=== PATIENT | female | born 1985 | race Caucasian/White ===

== ENCOUNTER 2017-08-21 09:57 | Emergency (ER) | payer MEDICAID ==
[~2017-08-21] VITALS: Ht 154.9 cm; Wt 79.4 kg
--- NOTE | 2017-08-21 10:35 | Urgent Treatment Center Report ---
History of Present Issue Date/Time Seen by Provider 08/21/17 1014 Visit Reason Pt arrived:Walked Presenting Problem:PT C/O DENTAL PAIN X4 DAYS Location if Accident: Onset of symptoms date/time:/ or onset unknown for:MEDICAL HX UNKNOWN Have you (or family members/close friends) recently traveled outside the [place]? N If Yes, where/when: Have you had exposure to infectious disease within the past month? TB? Other? Specify: Patient state that she had several teeth cut out last week State that for last four days she is having a throbbing like pain in her back of her gums where two of the teeth where removed States that she is also having pain in the front of her mouth on top gum where third tooth was removed. State that she called her dentist and they cannot get her in until Thu ALLERGIES Coded Allergies: ibuprofen (Mild, 08/21/17) codeine (HIVES/UPSET STOMACH 09/02/16) ondansetron (From ZOFRAN ( HYDROCHLORIDE)) (VOMITING 09/02/16) prednisone (FACIAL SWELLING 10/06/16) Home Medications Reported Medications Omeprazole (Prilosec 40mg Cap) 40 MG PO DAILY Gabapentin (Gabapentin 800MG) 600 MG PO QID Estradiol (Estrace 2MG. Tablet) 2 MG PO DAILY #30 Clonazepam (Clonazepam 0.5MG) 0.5 MG PO BID #60 Escitalopram Oxalate 20 MG PO DAILY #30 Quetiapine Fumarate 25 MG PO NIGHTLY #30 Doxycycline Hyclate 100 MG PO DAILY #30 PROMETHAZINE HCL (Phenergan 25MG Tab (Geq)) 25 MG PO Q6HP PRN N/V #30 Albuterol (Albuterol-Hfa Inhaler) 2 PUFFS IH PRN PRN asthma History Medical History General CAD? No Angina: No MD: No Hypertension? No Hyperlipidemia? Yes CHF? No DVT? No PE? No COPD? No Asthma? Yes Anemia? No GERD? Yes Gastric ulcers? No GI Bleed? No Hernia? No Thyroid Problems? Yes Hypothyroidism? No CVA? No Seizures? No Diabetes? No Renal Insuffiency? No UTI? No Stones? No BPH? No GB Disease: Yes Nephritic Syndrome? No Asplenia? No Hepatitis? Yes Sickle Cell Disease? No Arthritis? Yes Migraines? No Cataracts? No Glaucoma? No MRSA? Yes HIV? No TB? No Anxiety? Yes Depression? No Cancer? No More? Yes Additional hx: HEPATITIS C Immunization HX DT/Tetanus 1-4 Years Ago Flu Refused Pneumonia Never Had Surgical Hx Previous Surgery?Y EXPLORATORY LAP X2 X'S 3 LAP CHOLECYSTECTOMY ENDOSCOPY CYST REMOVED FROM L CHEEK HYSTERECTOMY BLADDER REPAIR Family History Family HX Diabetes Yes CAD Yes Hypertension Yes Hyperlipidemia Yes Cancer Yes TB No Social History Smoking Hx Smoker: Current Every Day Smoker Tobacco: Yes Type Cigarettes Packs/day 1 1/2 - 2 Packs Alcohol Alcohol: No Review of Systems All Other Systems Reviewed and Negative ENT mouth pain, missing teeth, other. Physical Exam Vital Signs Vital Signs Date Time Temp Pulse Resp B/P Pulse O2 O2 Flow FiO2 Ox Delivery Rate 08/21 1007 98.0 89 22 138/90 98 General Appearance normal appearance, WD/WN, no apparent distress Ear, Nose, Throat dental caries, Dental pain where she had three teeth cut out at the dentist last week, gums appear healing, pink, no redness minimal swelling Respiratory Status Yes: trachea midline, chest symmetrical. No: respiratory distress. Lung Sounds bilateral: normal breath sounds, lungs clear. Cardiovascular regular rate/rhythm Neurologic alert, normal exam, oriented x 3 Medical Decision Making LABS/Meds/Orders Pt receiving controlled substance in ED? No Results/Orders Current Medication Orders Sig/Grace Start time Last Medication Dose Route Stop Time Status Admin Lidocaine HCl 15 ML ONCE ONE 08/21 1030 DC TP 08/21 1031 Lidocaine HCl 0 .STK-MED ONE 08/21 1029 DC .ROUTE Orders Procedure Date/time Status [facility] DENTAL BALL 08/21 1021 Active Progress [facility] Progress Notes Comment Patient wanted Percocet refilled, Patient advised that I was unable to write narcotics advised her that we could transfer her to ER if she needed something stronger than what was being recommended State that she would try the medicaiton and if it didn't help with pain she would follow up with Dentist Departure Departure Time of Disposition 1021 Disposition DC Home or Self Care(routine) Clinical Impression Primary Impression: Pain, dental Condition STABLE Referrals Dentist Patient Instructions DI for Dental Pain Additional Instructions Follow up with dentist as advised in the clinic today Use dental balls as instructed Take medication as prescribed If medication does not help with pain follow up with dentist for further treatment ANy signs of infection such as swelling drainage redness go straight to ER Discharge Counseling Counseled pt/family regarding diagnosis, medications/RX, home care, follow up needs Prescriptions Current Visit Scripts ACETAMINOPHEN/DIPHENHYDRAMINE (Percogesic 325-12.5 MG Tablet) 1 TAB PO Q4HP PRN pain #20 TAB at 4903
[2017-08-21 10:39] VITALS: BP 138/90
--- OUTSIDE RECORDS SUMMARY | 2017-08-28 02:58 | External Medical Summary Rpt ---
Author Author [facility] Organization [facility] Address Unknown Phone Unavailable Care Team Providers Care Powder Blender And Pourer Name Role Phone NICOL, (REF) PCP [phone] Encounter [facility] Date(s): 09/18/16 - 09/28/16 [facility] [address] [place] [address]- Discharge Disposition: OP Self Care or Home Attending Physician: GERMAINE CHAVEZ MD-URO Admitting Physician: GERMAINE CHAVEZ MD-URO Referring Physician: GERMAINE CHAVEZ MD-URO Reason for Visit ILLNESS, UNSPECIFIED Vital Signs Most recent 1 2 3 to oldest [Reference Range]: Temperature Oral (09/26/16 Oral (09/26/16 Oral (09/25/16 Source 7:53 AM) 4:23 AM) 7:25 PM) Temperature Fahrenheit Fahrenheit Fahrenheit Mode (09/26/16 7:53 (09/26/16 4:23 (09/25/16 7:25 AM) AM) PM) Temperature, 98.6 Deg F 98.5 Deg F 98.8 Deg F Fahrenheit (09/28/16 10:45 (09/27/16 11:30 (09/27/16 7:30 [96.8-99.7 AM) PM) PM) Deg F] Clinical 37 Deg C 36.9 Deg C 37.1 Deg C Temperature, (09/28/16 10:45 (09/27/16 11:30 (09/27/16 7:30 C AM) PM) PM) Pulse Method Pulse Oximetry (09/19/16 10:50 AM) Peripheral 79 bpm (09/19/16 Pulse Rate 10:50 AM) [60-100 bpm] Heart Rate 55 bpm 72 bpm (09/27/16 67 bpm (09/27/16 Monitored *LOW*(09/28/16 11:30 PM) 7:30 PM) [60-100 bpm] 10:45 AM) Respiratory 16 Breaths/Min 17 Breaths/Min 16 Breaths/Min Rate [14-20 (09/28/16 10:45 (09/27/16 11:30 (09/27/16 7:30 Breaths/Min] AM) PM) PM) Blood Arm, left upper Arm, left upper Pressure (09/25/16 8:00 (09/19/16 10:50 Location AM) AM) Blood Non-Invasive BP Non-Invasive BP Pressure Device (09/25/16 Device (09/19/16 Source 8:00 AM) 10:50 AM) Blood Sitting (09/19/16 Pressure 10:50 AM) Position Blood 143/96 mmHg 125/67 mmHg 128/86 mmHg Pressure *HI*(09/28/16 (09/27/16 11:30 (09/27/16 7:30 [90-140/60-9 10:45 AM) PM) PM) 0 mmHg] Mean 111 (09/28/16 99 (09/27/16 7:30 98 (09/27/16 4:30 Arterial 10:45 AM) PM) PM) Pressure (MAP)-BMDI Oxygen 93 % 99 % (09/27/16 96 % (09/26/16 Saturation *LOW*(09/27/16 9:00 AM) 11:00 AM) [94-100 %] 9:00 PM) Oxygen Room air Room air Room air Therapy Mode (09/28/16 8:00 (09/27/16 9:00 (09/27/16 9:00 AM) PM) AM) Oxygen Flow 6 Liter/Min Rate (09/25/16 1:40 PM) Problem List Condition Effective Status Health Informant Dates Status Allergic Active rhinitis(Con firmed) Anemia(Confi Active rmed) anxiety(Conf Active irmed) Arthritis(Co Active nfirmed) Asthma (dx Active at age 12)(Confirme d) Back Active pain(Confirm ed) dizzy spells Active (occasional) (Confirmed) Endometriosi Active s(Confirmed) Fibroids (hx Active of)(Confirme d) GERD - Active Gastro-esoph ageal reflux disease(Conf irmed) herniated Active lumbar disc(Confirm ed) Hiatal Active hernia(Confi rmed) Incontinence Active (due to hole in bladder from hysterectomy )(Confirmed) legally Active blind(Confir med) Migraine(Con Active firmed) motion Active sickness (extreme)(Co nfirmed) MRSA; active Active left upper inner forearm(Conf irmed) nausea and Active vomiting; current(Conf irmed) PCO - Active Polycystic ovaries (hx of)(Confirme d) Peripheral Active neuropathy(C onfirmed) Restless Active legs syndrome(Con firmed) sciatica(Con Active firmed) Sinusitis(Co Active nfirmed) Sleep apnea Active risk(Confirm ed) Urinary Active tract infection (chronic since 02/2016)(Conf irmed) Allergies, Adverse Reactions, Alerts Substance Reaction Severity Status codeine Itching Active Hives predniSONE Facial swelling Active Zofran Nausea Active Vomiting Medications acetaminophen-oxyCODONE (Percocet 5/325 oral tablet)2 Tab, Oral, Every 4 Hours, As Needed, Abdominal Pain, Refills: 0Patient Instructions: New medication. Prescription provided.Ordering provider: Gama Peterson MD albuterol 2 puffs, Inhalation, Every Day, As Needed, as needed for shortness of breath or wheezing, Refills: 0 [id number] mcg, Inhalation, Every Day, As Needed, Shortness of Breath, Refills: 0 clonazePAM (KlonoPIN 0.5 mg oral tablet) 1 Tab, Oral, Two Times A Day, Refills: 0 docusate (Colace 100 mg oral capsule)1 Cap, Oral, Every Day, Refills: 0Patient Instructions: New medication. Prescription provided.Ordering provider: GERMAINE CHAVEZ MD-URO doxycycline (doxycycline hyclate 100 mg oral capsule)1 Cap, Oral, Two Times A Day, Refills: 0Patient Instructions: New medication. Prescription provided.Ordering provider: GERMAINE CHAVEZ MD-URO escitalopram (escitalopram 20 mg oral tablet) 1 Tab, Oral, Every Day, Refills: 0 estradiol (estradiol 2 mg oral tablet) 1 Tab, Oral, Every Day, Refills: 0 gabapentin (gabapentin 600 mg oral tablet) 1 Tab, Oral, Four Times A Day, Refills: 0 omeprazole (PriLOSEC OTC 20 mg oral delayed release tablet)1 Tab, Oral, Every Day, Refills: 0 traMADol (traMADol 50 mg oral tablet)1 Tab, Oral, Every 6 Hours, As Needed, for pain, Refills: 0 Results GENERAL CHEMISTRY Most recent 1 2 to oldest [Reference Range]: Sodium Level 147 mmol/L [136-146 *HI* mmol/L] (09/26/16 6:02 AM) Potassium 3.9 mmol/L Level (09/26/16 6:02 AM) [3.5-5.1 mmol/L] Chloride 113 mmol/L Level *HI* [102-112 (09/26/16 6:02 AM) mmol/L] Carbon 24 mmol/L Dioxide (09/26/16 6:02 AM) Level [21-32 mmol/L] Anion Gap 14 [9-20] (09/26/16 6:02 AM) Glucose 92 mg/dL Level (09/26/16 6:02 AM) [74-106 mg/dL] Blood Urea 11 mg/dL Nitrogen (09/26/16 6:02 AM) [7-22 mg/dL] Creatinine 0.60 mg/dL Level (09/26/16 6:02 AM) [0.55-1.02 mg/dL] eGFR 140 mL/min/1.73m2 [>=60 (09/26/16 6:02 AM) mL/min/1.73m 2] eGFR 116 mL/min/1.73m2 NonAfrican (09/26/16 6:02 AM) [>=60 mL/min/1.73m 2] Bun/Creatini 18.3 ne (09/26/16 6:02 AM) [8.0-20.0] Calcium 7.5 mg/dL Level *LOW* [8.5-10.1 (09/26/16 6:02 AM) mg/dL] HEMATOLOGY Most recent 1 2 to oldest [Reference Range]: WBC 10.4 K/uL 6.0 K/uL [4.0-10.0 *HI* (09/19/16 12:13 PM) K/uL] (09/26/16 6:02 AM) RBC 4.04 Million/uL 4.82 Million/uL [3.93-5.22 (09/26/16 6:02 AM) (09/19/16 12:13 PM) Million/uL] Hgb 11.6 g/dL 13.8 g/dL [11.2-15.7 (09/26/16 6:02 AM) (09/19/16 12:13 PM) g/dL] Hct 35.7 % 43.7 % [34.1-44.9 (09/26/16 6:02 AM) (09/19/16 12:13 PM) %] MCV 88.4 fL 90.7 fL [79.0-94.8 (09/26/16 6:02 AM) (09/19/16 12:13 PM) fL] MCH 28.7 pg 28.6 pg [25.6-32.2 (09/26/16 6:02 AM) (09/19/16 12:13 PM) pg] MCHC 32.5 Gram/dL 31.6 Gram/dL [32.2-36.5 (09/26/16 6:02 AM) *LOW* Gram/dL] (09/19/16 12:13 PM) Platelet 142 K/uL 199 K/uL Count *LOW* (09/19/16 12:13 PM) [163-369 (09/26/16 6:02 AM) K/uL] MPV 12.1 fL 11.3 fL [9.4-12.4 (09/26/16 6:02 AM) (09/19/16 12:13 PM) fL] RDW 13.4 % 13.9 % [11.6-14.4 (09/26/16 6:02 AM) (09/19/16 12:13 PM) %] Neut % 41.5 % [34.0-71.0 (09/19/16 12:13 PM) %] Neut # 2.48 K/uL [1.56-6.13 (09/19/16 12:13 PM) K/uL] Lymph % 50.0 % [19.3-53.1 (09/19/16 12:13 PM) %] Lymph # 2.98 x10(3)/uL [1.00-3.90 (09/19/16 12:13 PM) x10(3)/uL] [place] % 5.4 % [3.0-9.0 %] (09/19/16 12:13 PM) [place] # 0.32 K/uL [0.16-1.00 (09/19/16 12:13 PM) K/uL] Eos % 2.2 % [0.0-7.0 %] (09/19/16 12:13 PM) Eos # 0.13 x10(3)/uL [0.00-0.80 (09/19/16 12:13 PM) x10(3)/uL] Baso % 0.7 % [0.0-1.5 %] (09/19/16 12:13 PM) Baso # 0.04 x10(3)/uL [0.00-0.20 (09/19/16 12:13 PM) x10(3)/uL] Slide Review No No (09/26/16 6:02 AM) (09/19/16 12:13 PM) IG# 0.01 x10(3)/uL [0.00-0.05 (09/19/16 12:13 PM) x10(3)/uL] IG% 0.20 % [0.00-0.60 (09/19/16 12:13 PM) %] Immunizations No data available for this section Procedures Procedure Date Related Body Site Diagnosis cystoscopy 08/16 07/01 hysterectomy (hole punctured 02/28 in bladder) x3 (2003, 2007, 2011) cyst removed right side of face D&C (x2) dx lap (x3-4 for endometriosis) lap isra oral surgery under anesthetic (6 teeth cut out) wisdom tooth x1 Social History Social History Response Type Smoking Status Current every day smoker; Smoking Frequency Within Last 30 Days Five or more cigarettes per day; Tobacco Use Within Last Twelve Months Cigarettes; Years of Tobacco Use 15; Packs/Tins Daily 2 Assessment and Plan Extracted from: Title: Progress/SOAP Author: Nicholas, Date: 09/27/16 Note MD Gama Assessment/Plan 31 yo female s/p robotic vesicovaginal fistula repair 09/25/2016 - continue regular diet - dvt ppx - continue pain control - possible dc today if pt can tolerate diet without phenergan - continue pain control - possible dc today if pt can tolerate diet without phenergan Adde I HAVE SEEN AND EVALUATED THIS PATIENT AND AGREE WITH FINDINGS ndum AND PLANS DOCUMENTED BY THE RESIDENT IN THE ABOVE NOTE. by TOMY LABOY MD on [facility] 2015 13:2 7:51 EST Extracted from: Title: Progress/SOAP Author: Nicholas, Date: 09/26/16 Note MD Gama Assessment/Plan Illness, [id number], Illness, [id number] 31 yo female s/p robotic vesicovaginal fistula repair 09/25/2016 - continue clears - ambulate TID - dvt ppx - continue sotelo - pain control Adde c/o surgical pain and nausea. agree w above, home when stable ndum and f/u w me in [place] 10/07/16 for catheter removal. by LULY IVORY MD-U RO on [facility] 2015 11:0 0:16 EST Hospital Discharge Instructions Patient EducationFoley Catheter Care, Adult
--- OUTSIDE RECORDS SUMMARY | 2017-08-28 02:58 | External Medical Summary Rpt ---
Author Author [facility] Organization [facility] Address Unknown Phone Unavailable Care Team Providers Care [employer] Maintenance Worker Name Role Phone NICOL, (REF) PCP [phone] Encounter 09/11/16 - 07/10/[address] [facility] [place] [address]- Discharge Disposition: Registered in Error Admitting Physician: GERMAINE CHAVEZ MD-URO Referring Physician: GERMAINE CHAVEZ MD-URO Reason for Visit N 82.0 Vital Signs No data available for this section Problem List Condition Effective Status Health Informant [...] 4 Hours, As Needed, Abdominal Pain, Refills: 0Ordering provider: Gama Peterson MD albuterol 2 puffs, Inhalation, Every Day, As Needed, as needed for shortness of breath or wheezing, Refills: 0 [id number] mcg, Inhalation, Every Day, As Needed, Shortness of Breath, Refills: 0 clonazePAM (KlonoPIN 0.5 mg oral tablet) 1 Tab, Oral, Two Times A Day, Refills: 0 docusate (Colace 100 mg oral capsule) 1 Cap, Oral, Every Day, Refills: 0 Ordering provider: GERMAINE CHAVEZ MD-URO escitalopram (escitalopram 20 [...] As Needed, for pain, Refills: 0 Results No data available for this section Immunizations No data available for this section Procedures No data available for this section Social History Social History Response Type Smoking Status Current every day smoker; Smoking Frequency Within Last 30 Days Five or more cigarettes per day; Tobacco Use Within Last Twelve Months Cigarettes; Years of Tobacco Use 15; Packs/Tins Daily 2 Assessment and Plan No data available for this section Hospital Discharge Instructions No data available for this section
--- OUTSIDE RECORDS SUMMARY | 2017-08-28 02:58 | External Medical Summary Rpt ---
Author Author [facility] Organization [facility] Address Unknown Phone Unavailable Care Team Providers Care Plow Mechanic Name Role Phone NICOL, (REF) PCP [phone] Encounter [facility] Date(s): 09/18/16 - 09/28/[address] [facility] [address] [place] [address]- [phone] Discharge Disposition: OP Self Care or Home [...] shortness of breath or wheezing, Refills: 0 [id number] mcg, Inhalation, Every Day, As Needed, Shortness [...] 2.98 x10(3)/uL [1.00-3.90 (09/19/16 12:13 PM) x10(3)/uL] [place] % 5.4 % [3.0-9.0 %] (09/19/16 12:13 PM) [place] # 0.32 K/uL [0.16-1.00 (09/19/16 12:13 PM) [...] ABOVE NOTE. by TOMY LABOY MD on [facility] 2015 13:2 7:51 EST Extracted from: Title: Progress/SOAP Author: Nicholas, Date: 09/26/16 Note MD Gama Assessment/Plan Illness, [id number], Illness, [id number] 31 yo female s/p robotic vesicovaginal fistula repair 09/25/2016 - continue clears - ambulate TID - dvt ppx - continue sotelo - pain control Adde c/o surgical pain and nausea. agree w above, home when stable ndum and f/u w me in [place] 10/07/16 for catheter removal. by LULY IVORY MD-U RO on [facility] 2015 11:0 0:16 EST Hospital Discharge Instructions Patient EducationFoley Catheter Care, Adult
--- OUTSIDE RECORDS SUMMARY | 2017-08-28 02:58 | External Medical Summary Rpt ---
Author Author [facility] Organization [facility] Address Unknown Phone Unavailable Care Team Providers Care Poultry Pathologist Name Role Phone NICOL, (REF) PCP [phone] Encounter 09/11/16 - 07/10/[address] [facility] [place] [address]- Discharge Disposition: Registered in Error Admitting Physician: [...] shortness of breath or wheezing, Refills: 0 [id number] mcg, Inhalation, Every Day, As Needed, Shortness [...]
--- OUTSIDE RECORDS SUMMARY | 2017-08-28 03:26 | External Medical Summary Rpt | CCD ---
Demographics Preferred Language Sinhala Marital Status Unknown Yazidi Affiliation Unknown Race Unknown Ethnic Group Unknown Author Author , BARON DRAPER Address Unknown Phone Immunization No patient found.
--- OUTSIDE RECORDS SUMMARY | 2017-08-28 03:26 | External Medical Summary Rpt | CCD ---
Demographics Preferred Language Uzbek Marital Status Unknown Mosque Affiliation Unknown Race Unknown Ethnic Group Unknown Author Author , BARON DRAPER Address Unknown Phone Immunization No patient found.
--- OUTSIDE RECORDS SUMMARY | 2017-08-28 03:27 | External Medical Summary Rpt ---
Author Author BARON Kaplan, [employer] Address Unknown Phone Unavailable Results Bacteria identified in Urine by Culture Observa Value Referen Units Interpr Notes Date tion ce etation Range Collect CLEAN No No No Dec 01 ion CATCH informa informa informa 2017 method tion in tion in tion in 8:36 AM [Type] source source source of data data data Specime n STATUS PRELIMI No No No No Dec 01 NARY informa informa informa informa 2017 tion in tion in tion in tion in 8:36 AM source source source source data data data data RESULT: NO No No No No Dec 01 GROWTH informa informa informa informa 2016 DAY 1 tion in tion in tion in tion in 8:36 AM source source source source data data data data RESULTE DB No No No No Dec 01 D BY informa informa informa informa 2017 tion in tion in tion in tion in 8:36 AM source source source source data data data data SEND Y No No No No Dec 01 PHARM/I informa informa informa informa 2017 C tion in tion in tion in tion in 8:36 AM source source source source data data data data SEND TO Y No No No Dec 01 ER informa informa informa 2017 tion in tion in tion in 8:36 AM source source source data data data STATUS FINAL No No No No Dec 01 informa informa informa informa 2017 tion in tion in tion in tion in 8:36 AM source source source source data data data data RESULT: 20,000 No No No No Dec 01 CFU/ML informa informa informa informa 2017 UROGENI tion in tion in tion in tion in 8:36 AM CHAGO source source source source LORI data data data data RESULTE MDA No No No No Dec 01 D BY informa informa informa informa 2017 tion in tion in tion in tion in 8:36 AM source source source source data data data data SEND Y No No No No Dec 01 PHARM/I informa informa informa informa 2017 C tion in tion in tion in tion in 8:36 AM source source source source data data data data SEND TO Y No No No Dec 01 ER informa informa informa [id number]. 2017 tion in tion in tion in DRB.to 8:36 AM source source source PHARMAC data data data Y D via [facility] [place]. [id number].MD KurtzCOMPL ETE Drug abuse CCC Observa Value Referen Units Interpr Notes Date tion ce etation Range DIMENSION RAPID URINE DRUG SCREEN DETECTI No No No No Nov 29 ON informa informa informa informa 2017 LIMIT tion in tion in tion in tion in 6:44 PM source source source source data data data data Drug NEG. No 1000_ng No No Nov 29 abuse informa /mL informa informa 2017 CCC tion in tion in tion in 6:44 PM source source source data data data Benzodi NEG. No 200_ng/ No No Nov 29 azepine informa mL informa informa 2016 s tion in tion in tion in 6:44 PM [Mass/v source source source olume] data data data in Urine Benzodi POS. No 200_ng/ No No Nov 29 azepine informa mL informa informa 2016 s tion in tion in tion in 6:44 PM [Mass/v source source source olume] data data data in Urine Cocaine NEG. No 300_ng/ No No Nov 29 informa mL informa informa 2016 [Mass/v tion in tion in tion in 6:44 PM olume] source source source in data data data Urine Methado NEG. No 300_ng/ No No Nov 29 ne informa mL informa informa 2016 [Mass/v tion in tion in tion in 6:44 PM olume] source source source in data data data Urine Platele NEG. No 2000_ng No No Nov 29 ts informa /mL informa informa 2016 [#/volu tion in tion in tion in 6:44 PM me] in source source source Blood data data data by Automat ed count Phencyc NEG. No 25_ng/m No No Nov 29 lidine informa L informa informa 2016 [Mass/v tion in tion in tion in 6:44 PM olume] source source source in data data data Urine Cannabi NEG. No 50_ng/m No No Nov 29 noids informa L informa informa 2016 [Mass/v tion in tion in tion in 6:44 PM olume] source source source in data data data Urine Oxycodo NEG. No 100_ng/ No *POSITI Nov 29 ne informa mL informa VE 2016 [Mass/m tion in tion in RESULTS 6:44 PM ass] in source source ARE Hair data data CONSIDE RED PRESUMP TIVEP OSITIVE RESULTS SHALL BE SENT TO [facility] FOR CONFIRM ATION UPON REQUEST T HIS TEST PERORME D FOR MEDICAL DIAGNOS TIC USE ONLY TEST PERFORM ED BY: [facility] [address] [address]([phone])W[place] DICAL DIRECTO R: Frankie Fajardo MD Urinalysis dipstick W Reflex Microscopic panel in Urine Observa Value Referen Units Interpr Notes Date tion ce etation Range Color LT. NL: No No No Nov 29 of WAYNE Negativ informa informa informa 2016 Urine e tion in tion in tion in 6:42 PM source source source data data data Appeara CLEAR NL: No No No Nov 29 nce of Negativ informa informa informa 2016 Urine e tion in tion in tion in 6:42 PM source source source data data data Glucose NEG NL: No No No Nov 29 Negativ informa informa informa 2016 [Mass/v e tion in tion in tion in 6:42 PM olume] source source source in data data data Urine by Test strip Bilirub NEG NL: No No No Nov 29 in Negativ informa informa informa 2016 [Presen e tion in tion in tion in 6:42 PM ce] in source source source Urine data data data by Test strip Ketones NEG NL: No No No Nov 29 Negativ informa informa informa 2016 [Presen e tion in tion in tion in 6:42 PM ce] in source source source Serum data data data or Plasma Specifi 1.010 NL: No No No Nov 29 c 1.00 >= informa informa informa 2017 gravity 1.030 tion in tion in tion in 6:42 PM of source source source Urine data data data Hemoglo 1+ NL: No Abnorma No Nov 29 bin Negativ informa l informa 2017 [Presen e tion in tion in 6:42 PM ce] in source source Urine data data by Test strip pH of 6.0 NL: No No No Nov 29 Urine informa informa informa 2017 by Test tion in tion in tion in 6:42 PM strip source source source data data data Protein NEG NL: No No No Nov 29 Negativ informa informa informa 2017 [Presen e tion in tion in tion in 6:42 PM ce] in source source source Urine data data data by Test strip Urobili 0.2 NL: 0.2 No No No Nov 29 nogen - 1.0 informa informa informa 2017 [Mass/v tion in tion in tion in 6:42 PM olume] source source source in data data data Urine by Test strip Nitrite NEG NL: No No No Nov 29 Negativ informa informa informa 2017 [Presen e tion in tion in tion in 6:42 PM ce] in source source source Urine data data data by Test strip Leukocy NEG NL: No No { Nov 29 luis Negativ informa informa MICROSC 2016 [#/volu e tion in tion in OPIC 6:42 PM me] in source source Blood data data See by Below Automat ed count Leukocy 0 - 3 NL: No No No Nov 29 luis NEGATIV informa informa informa 2016 [#/volu E tion in tion in tion in 6:42 PM me] in source source source Blood data data data by Automat ed count Erythro 0 - 3 NL: No Abnorma No Nov 29 cytes NEGATIV informa l informa 2016 [#/volu E tion in tion in 6:42 PM me] in source source Blood data data by Automat ed count Epithel 5 - 10 NL: No Abnorma No Nov 29 ial NEGATIV informa l informa 2017 cells E tion in tion in 6:42 PM [#/area source source ] in data data Urine sedimen t by Microsc opy high power field Bacteri TRACE NL: No Abnorma No Nov 29 a NEGATIV informa l informa 2016 [#/area E tion in tion in 6:42 PM ] in source source Urine data data sedimen t by Microsc opy high power field Additio C CATCH No No No No Nov 29 nal informa informa informa informa 2017 comment tion in tion in tion in tion in 6:42 PM s RFC source source source source data data data data CULTURE C&S No No Abnorma No Nov 29 SETUP ORDER informa informa l informa 2017 tion in tion in tion in 6:42 PM source source source data data data Urinalysis dipstick W Reflex Microscopic panel in Urine Observa Value Referen Units Interpr Notes Date tion ce etation Range Color LT. NL: No No No Nov 29 of YELL Negativ informa informa informa 2017 Urine e tion in tion in tion in 6:42 PM source source source data data data Appeara CLEAR NL: No No No Nov 29 nce of Negativ informa informa informa 2017 Urine e tion in tion in tion in 6:42 PM source source source data data data Glucose NEG NL: No No No Nov 29 Negativ informa informa informa 2016 [Mass/v e tion in tion in tion in 6:42 PM olume] source source source in data data data Urine by Test strip Bilirub NEG NL: No No No Nov 29 in Negativ informa informa informa 2016 [Presen e tion in tion in tion in 6:42 PM ce] in source source source Urine data data data by Test strip Ketones NEG NL: No No No Nov 29 Negativ informa informa informa 2016 [Presen e tion in tion in tion in 6:42 PM ce] in source source source Serum data data data or Plasma Specifi 1.010 NL: No No No Nov 29 c 1.00 >= informa informa informa 2017 gravity 1.030 tion in tion in tion in 6:42 PM of source source source Urine data data data Hemoglo 1+ NL: No Abnorma No Nov 29 bin Negativ informa l informa 2016 [Presen e tion in tion in 6:42 PM ce] in source source Urine data data by Test strip pH of 6.0 NL: No No No Nov 29 Urine informa informa informa 2017 by Test tion in tion in tion in 6:42 PM strip source source source data data data Protein NEG NL: No No No Nov 29 Negativ informa informa informa 2016 [Presen e tion in tion in tion in 6:42 PM ce] in source source source Urine data data data by Test strip Urobili 0.2 NL: 0.2 No No No Nov 29 nogen - 1.0 informa informa informa 2016 [Mass/v tion in tion in tion in 6:42 PM olume] source source source in data data data Urine by Test strip Nitrite NEG NL: No No No Nov 29 Negativ informa informa informa 2016 [Presen e tion in tion in tion in 6:42 PM ce] in source source source Urine data data data by Test strip Leukocy NEG NL: No No { Nov 29 luis Negativ informa informa MICROSC 2016 [#/volu e tion in tion in OPIC 6:42 PM me] in source source Blood data data See by Below Automat ed count Leukocy 0 - 3 NL: No No No Nov 29 luis NEGATIV informa informa informa 2016 [#/volu E tion in tion in tion in 6:42 PM me] in source source source Blood data data data by Automat ed count Erythro 0 - 3 NL: No Abnorma No Nov 29 cytes NEGATIV informa l informa 2016 [#/volu E tion in tion in 6:42 PM me] in source source Blood data data by Automat ed count Epithel 5 - 10 NL: No Abnorma No Nov 29 ial NEGATIV informa l informa 2016 cells E tion in tion in 6:42 PM [#/area source source ] in data data Urine sedimen t by Microsc opy high power field Bacteri TRACE NL: No Abnorma No Nov 29 a NEGATIV informa l informa 2016 [#/area E tion in tion in 6:42 PM ] in source source Urine data data sedimen t by Microsc opy high power field Additio C CATCH No No No No Nov 29 nal informa informa informa informa 2016 comment tion in tion in tion in tion in 6:42 PM s RFC source source source source data data data data CULTURE C&S No No Abnorma No Nov 29 SETUP ORDER informa informa l informa 2016 tion in tion in tion in 6:42 PM source source source data data data Lactate [Mass/volume] in Serum or Plasma Observa Value Referen Units Interpr Notes Date tion ce etation Range Lactate 0.77 0.40 - mmol/L No VINESSA Nov 29 2.00 informa H 1711 2016 [Mass/v tion in 5:10 PM olume] source 11/29/16 in data Serum or Plasma Comprehensive metabolic 1998 panel in Serum or Plasma Observa Value Referen Units Interpr Notes Date ti ce etation Range Sodium 138 136 - mmol/L No No Nov 29 [Moles/ 145 informa informa 2016 volume] tion in tion in 5:06 PM in source source Serum data data or Plasma Potassi 4.0 3.5 - mmol/L No No Nov 29 um 5.1 informa informa 2016 [Moles/ tion in tion in 5:06 PM volume] source source in data data Serum or Plasma Chlorid 102 98 - mmol/L No No Nov 29 e 107 informa informa 2016 [Moles/ tion in tion in 5:06 PM volume] source source in data data Serum or Plasma Carbon 27 21 - 32 mmol/L No No Nov 29 dioxide informa informa 2016 , total tion in tion in 5:06 PM source source [Moles/ data data volume] in Blood Anion 13 5 - 15 mmol/L No No Nov 29 gap in informa informa 2016 Serum tion in tion in 5:06 PM or source source Plasma data data Glucose 82 70 - mg/dl No No Nov 29 120 informa informa 2016 [Mass/v tion in tion in 5:06 PM olume] source source in data data Serum or Plasma Urea 7 7 - 18 mg/dl No No Nov 29 nitroge informa informa 2016 n tion in tion in 5:06 PM [Mass/v source source olume] data data in Serum or Plasma Creatin 0.7 0.6 - mg/dl No No Nov 29 ine 1.3 informa informa 2016 [Mass/v tion in tion in 5:06 PM olume] source source in data data Serum or Plasma AGE 31 No yrs No No Nov 29 informa informa informa 2016 tion in tion in tion in 5:06 PM source source source data data data GFR >60 No ml/min No No Nov 29 informa informa informa 2017 tion in tion in tion in 5:06 PM source source source data data data Urea 10 6 - 25 ratio No No Nov 29 nitroge informa informa 2016 n/Creat tion in tion in 5:06 PM inine source source [Mass data data ratio] in Serum or Plasma Osmolal 273 272 - No No No Nov 29 ity of 295 informa informa informa 2016 Unspeci tion in tion in tion in 5:06 PM fied source source source specime data data data n Calcium 8.4 8.5 - mg/dl Low No Nov 29 10.1 informa 2016 [Mass/v tion in 5:06 PM olume] source in data Serum or Plasma Bilirub 0.1 0.2 - mg/dl Low No Nov 29 in.tota 1.0 informa 2016 l tion in 5:06 PM [Mass/v source olume] data in Serum or Plasma Asparta 31 15 - 37 IU/L No No Nov 29 te informa informa 2016 aminotr tion in tion in 5:06 PM ansfera source source se data data [Enzyma tic activit y/volum e] in Serum or Plasma Alanine 39 12 - 78 IU/L No No Nov 29 informa informa 2016 aminotr tion in tion in 5:06 PM ansfera source source se data data [Enzyma tic activit y/volum e] in Serum or Plasma Alkalin 105 46 - IU/L No No Nov 29 e 116 informa informa 2016 phospha tion in tion in 5:06 PM tase source source [Enzyma data data tic activit y/volum e] in Serum or Plasma Protein 7.4 6.4 - g/dl No No Nov 29 8.2 informa informa 2016 [Mass/v tion in tion in 5:06 PM olume] source source in data data Serum or Plasma Albumin 3.3 3.4 - g/dl Low No Nov 29 5.0 inform2016 [Mass/v tion in 5:06 PM olume] source in data Serum or Plasma Albumin 4.1 1.3 - g/dl High No Nov 29 /Globul 3.5 informa 2017 in tion in 5:06 PM [Mass source ratio] data in Serum or Plasma Albumin 0.8 1.0 - ratio Low GLOMERU Nov 29 /Globul 3.9 LAR 2017 in FILTRAT 5:06 PM [Mass ION ratio] RATE in INTERPR Serum ETATION or Normal Plasma Range: >60 mL/min/ 1.73 sq metersI f patient is Holli n, multipl y GFR by 1.120.* GFR only applies to adults over the age 18. Prothrombin time (PT) in Platelet poor plasma by Coagulation assay Observa Value Referen Units Interpr Notes Date tion ce etation Range Prothro 10.4 9.9 - secs No No Nov 29 mbin 11.7 informa inform2016 time tion in tion in 5:04 PM (PT) in source source data data Platele t poor plasma by Coagula tion assay INR in 1.0 0.9 - No No No Nov 29 Platele 1.1 informa informa inform2016 t poor tion in tion in tion in 5:04 PM plasma source source source by data data data Coagula tion assay Activat 26.5 20.0 - secs No INR Nov 29 ed 30.0 informa SUGGEST 2017 partial tion in ED 5:04 PM source GUIDELI thrombp data GERRI* lastin Routine time or (aPTT) anticoa in gulant Platele therapy t poor 2.0 - plasma 3.0* by Oral Coagula anticoa tion gulant assay therapy for recurre ntembol ism and patient s with mechani michelle heartva lves 2.5 - 3.5 Platelet; Plt; Thrombocytes; Platelt; Thrb; Thrombocyte; Diff Pnl; Point in time Observa Value Referen Units Interpr Notes Date tion ce etation Range Leukocy 5.0 4.5 - K/uL No No Nov 29 luis 11.5 informa informa 2016 [#/volu tion in tion in 4:57 PM me] in source source Blood data data by Automat ed count Erythro 4.82 4.00 - M/uL No No Nov 29 cytes 5.40 informa informa 2016 [#/volu tion in tion in 4:57 PM me] in source source Blood data data by Automat ed count Hemoglo 13.8 12.0 - g/dL No No Nov 29 bin 15.0 informa informa 2016 [Mass/v tion in tion in 4:57 PM olume] source source in data data Blood Hematoc 42 35 - 49 % No No Nov 29 rit informa informa 2016 [Volume tion in tion in 4:57 PM source source Fractio data data n] of Blood by Automat ed count Erythro 86.9 80.0 - fL No No Nov 29 cyte 100 informa informa 2016 mean tion in tion in 4:57 PM corpusc source source ular data data volume [Entiti c volume] by Automat ed count Erythro 28.6 26.0 - pg No No Nov 29 cyte 32.0 informa informa 2016 mean tion in tion in 4:57 PM corpusc source source ular data data hemoglo bin [Entiti c mass] by Automat ed count Erythro 32.9 32.0 - g/dL No No Nov 29 cyte 36.0 informa informa 2016 mean tion in tion in 4:57 PM corpusc source source ular data data hemoglo bin concent ration [Mass/v olume] in Blood from Fetus by Automat ed count Erythro 14.0 11.5 - % No No Nov 29 cyte 14.5 informa informa 2016 distrib tion in tion in 4:57 PM ution source source width data data [Ratio] by Automat ed count Platele 245 150 - K/uL No No Nov 29 ts 450 informa informa 2016 [#/volu tion in tion in 4:57 PM me] in source source Blood data data by Automat ed count Lymphoc 47.0 18.0 - % High No Nov 29 ytes/10 42.0 informa 2016 0 tion in 4:57 PM leukocy source luis in data Blood by Automat ed count Monocyt 8.3 2.0 - % No No Nov 29 es/100 11.0 informa informa 2017 leukocy tion in tion in 4:57 PM luis in source source Blood data data by Automat ed count Neutrop 42.3 50.0 - % Low No Nov 29 hils.ba 70.0 informa 2016 nd tion in 4:57 PM form/10 source 0 data leukocy luis in Blood by Manual count Eosinop 1.80 1.00 - % No No Nov 29 hils/10 3.00 informa informa 2017 0 tion in tion in 4:57 PM leukocy source source luis in data data Blood by Automat ed count Basophi 0.60 0.00 - % No No Nov 29 ls/100 2.00 informa informa 2017 leukocy tion in tion in 4:57 PM luis in source source Blood data data by Automat ed count Lymphoc 2.33 0.60 - K/uL No No Nov 29 ytes/10 3.40 informa informa 2017 0 tion in tion in 4:57 PM leukocy source source luis in data data Blood by Automat ed count Monocyt 0.41 0.00 - K/uL No No Nov 29 es/100 0.90 informa informa 2017 leukocy tion in tion in 4:57 PM luis in source source Blood data data by Automat ed count Neutrop 2.10 2.00 - K/uL No No Nov 29 hils.ba 6.90 informa informa 2017 nd tion in tion in 4:57 PM form/10 source source 0 data data leukocy luis in Blood by Manual count Eosinop 0.09 0.00 - K/uL No No Nov 29 hils/10 0.70 informa informa 2017 0 tion in tion in 4:57 PM leukocy source source luis in data data Blood by Automat ed count Basophi 0.03 0.00 - K/uL No No Nov 29 ls/100 0.20 informa informa 2017 leukocy tion in tion in 4:57 PM luis in source source Blood data data by Automat ed count Manual NOT No No No No Nov 29 differe INDICAT informa informa informa informa 2017 ntial ED tion in tion in tion in tion in 4:57 PM perform source source source source ed data data data data [Presen ce] in Blood Platelet; Plt; Thrombocytes; Platelt; Thrb; Thrombocyte; Diff Pnl; Point in time Observa Value Referen Units Interpr Notes Date tion ce etation Range Leukocy 5.0 4.5 - K/uL No No Nov 29 luis 11.5 informa informa 2016 [#/volu tion in tion in 4:57 PM me] in source source Blood data data by Automat ed count Erythro 4.82 4.00 - M/uL No No Nov 29 cytes 5.40 informa informa 2016 [#/volu tion in tion in 4:57 PM me] in source source Blood data data by Automat ed count Hemoglo 13.8 12.0 - g/dL No No Nov 29 bin 15.0 informa informa 2016 [Mass/v tion in tion in 4:57 PM olume] source source in data data Blood Hematoc 42 35 - 49 % No No Nov 29 rit informa informa 2016 [Volume tion in tion in 4:57 PM source source Fractio data data n] of Blood by Automat ed count Erythro 86.9 80.0 - fL No No Nov 29 cyte 100 informa informa 2016 mean tion in tion in 4:57 PM corpusc source source ular data data volume [Entiti c volume] by Automat ed count Erythro 28.6 26.0 - pg No No Nov 29 cyte 32.0 informa informa 2016 mean tion in tion in 4:57 PM corpusc source source ular data data hemoglo bin [Entiti c mass] by Automat ed count Erythro 32.9 32.0 - g/dL No No Nov 29 cyte 36.0 informa informa 2016 mean tion in tion in 4:57 PM corpusc source source ular data data hemoglo bin concent ration [Mass/v olume] in Blood from Fetus by Automat ed count Erythro 14.0 11.5 - % No No Nov 29 cyte 14.5 informa informa 2016 distrib tion in tion in 4:57 PM ution source source width data data [Ratio] by Automat ed count Platele 245 150 - K/uL No No Nov 29 ts 450 informa informa 2016 [#/volu tion in tion in 4:57 PM me] in source source Blood data data by Automat ed count Lymphoc 47.0 18.0 - % High No Nov 29 ytes/10 42.0 informa 2017 0 tion in 4:57 PM leukocy source luis in data Blood by Automat ed count Monocyt 8.3 2.0 - % No No Nov 29 es/100 11.0 informa informa 2017 leukocy tion in tion in 4:57 PM luis in source source Blood data data by Automat ed count Neutrop 42.3 50.0 - % Low No Nov 29 hils.ba 70.0 informa 2016 nd tion in 4:57 PM form/10 source 0 data leukocy luis in Blood by Manual count Eosinop 1.80 1.00 - % No No Nov 29 hils/10 3.00 informa informa 2017 0 tion in tion in 4:57 PM leukocy source source luis in data data Blood by Automat ed count Basophi 0.60 0.00 - % No No Nov 29 ls/100 2.00 informa informa 2016 leukocy tion in tion in 4:57 PM luis in source source Blood data data by Automat ed count Lymphoc 2.33 0.60 - K/uL No No Nov 29 ytes/10 3.40 informa informa 2017 0 tion in tion in 4:57 PM leukocy source source luis in data data Blood by Automat ed count Monocyt 0.41 0.00 - K/uL No No Nov 29 es/100 0.90 informa informa 2017 leukocy tion in tion in 4:57 PM luis in source source Blood data data by Automat ed count Neutrop 2.10 2.00 - K/uL No No Nov 29 hils.ba 6.90 informa informa 2016 nd tion in tion in 4:57 PM form/10 source source 0 data data leukocy luis in Blood by Manual count Eosinop 0.09 0.00 - K/uL No No Nov 29 hils/10 0.70 informa informa 2017 0 tion in tion in 4:57 PM leukocy source source luis in data data Blood by Automat ed count Basophi 0.03 0.00 - K/uL No No Nov 29 ls/100 0.20 informa informa 2017 leukocy tion in tion in 4:57 PM luis in source source Blood data data by Automat ed count Manual NOT No No No No Nov 29 differe INDICAT informa informa informa informa 2017 ntial ED tion in tion in tion in tion in 4:57 PM perform source source source source ed data data data data [Presen ce] in Blood Bacteria identified in Blood by Culture Observa Value Referen Units Interpr Notes Date tion ce etation Range _CULTURE BLOOD_ STATUS PRELIMI No No No No Dec 04 NARY informa informa informa informa 2017 tion in tion in tion in tion in 6:06 PM source source source source data data data data RESULT NO No No No No Dec 04 GROWTH informa informa informa informa 2017 AT 1 tion in tion in tion in tion in 6:06 PM DAY source source source source data data data data RESULTE DB No No No No Dec 04 D BY informa informa informa informa 2017 tion in tion in tion in tion in 6:06 PM source source source source data data data data SEND Y No No No No Dec 04 PHARM/I informa informa informa informa 2017 C tion in tion in tion in tion in 6:06 PM source source source source data data data data SEND TO Y No No No Dec 04 ER informa informa informa 2017 tion in tion in tion in 6:06 PM source source source data data data STATUS FINAL No No No No Dec 04 informa informa informa informa 2017 tion in tion in tion in tion in 6:06 PM source source source source data data data data RESULT NO No No No No Dec 04 GROWTH informa informa informa informa 2017 5 DAYS tion in tion in tion in tion in 6:06 PM source source source source data data data data RESULTE JBG No No No No Dec 04 D BY informa informa informa informa 2017 tion in tion in tion in tion in 6:06 PM source source source source data data data data SEND Y No No No No Dec 04 PHARM/I informa informa informa informa 2017 C tion in tion in tion in tion in 6:06 PM source source source source data data data data SEND TO Y No No No 12/04/Dec 04 ER informa informa informa 7.1806. 2017 tion in tion in tion in [employer] 6:06 PM source source source PLETE data data data Bacteria identified in Blood by Culture Observa Value Referen Units Interpr Notes Date tion ce etation Range _CULTURE BLOOD_ STATUS PRELIMI No No No No Dec 04 NARY informa informa informa informa 2017 tion in tion in tion in tion in 6:05 PM source source source source data data data data RESULT NO No No No No Dec 04 GROWTH informa informa informa informa 2017 AT 1 tion in tion in tion in tion in 6:05 PM DAY source source source source data data data data RESULTE DB No No No No Dec 04 D BY informa informa informa informa 2017 tion in tion in tion in tion in 6:05 PM source source source source data data data data SEND Y No No No No Dec 04 PHARM/I informa informa informa informa 2017 C tion in tion in tion in tion in 6:05 PM source source source source data data data data SEND TO Y No No No Dec 04 ER informa informa informa 2017 tion in tion in tion in 6:05 PM source source source data data data STATUS FINAL No No No No Dec 04 informa informa informa informa 2017 tion in tion in tion in tion in 6:05 PM source source source source data data data data RESULT NO No No No No Dec 04 GROWTH informa informa informa informa 2017 5 DAYS tion in tion in tion in tion in 6:05 PM source source source source data data data data RESULTE JBG No No No No Dec 04 D BY informa informa informa informa 2017 tion in tion in tion in tion in 6:05 PM source source source source data data data data SEND Y No No No No Dec 04 PHARM/I informa informa informa informa 2017 C tion in tion in tion in tion in 6:05 PM source source source source data data data data SEND TO Y No No No Dec 04 ER informa informa informa 7.1805. 2017 tion in tion in tion in Beautylish 6:05 PM source source source PLETE01 data data data / 1805.LEROY G.to GIUSEPPE BURTON via fax Bacteria identified in Blood by Culture Observa Value Referen Units Interpr Notes Date tion ce etation Range _CULTURE BLOOD_ STATUS PRELIMI No No No No Dec 04 NARY informa informa informa informa 2017 tion in tion in tion in tion in 6:05 PM source source source source data data data data RESULT NO No No No No Dec 04 GROWTH informa informa informa informa 2017 AT 1 tion in tion in tion in tion in 6:05 PM DAY source source source source data data data data RESULTE DB No No No No Dec 04 D BY informa informa informa informa 2017 tion in tion in tion in tion in 6:05 PM source source source source data data data data SEND Y No No No No Dec 04 PHARM/I informa informa informa informa 2017 C tion in tion in tion in tion in 6:05 PM source source source source data data data data SEND TO Y No No No Dec 04 ER informa informa informa 2017 tion in tion in tion in 6:05 PM source source source data data data STATUS FINAL No No No No Dec 04 informa informa informa informa 2017 tion in tion in tion in tion in 6:05 PM source source source source data data data data RESULT NO No No No No Dec 04 GROWTH informa informa informa informa 2017 5 DAYS tion in tion in tion in tion in 6:05 PM source source source source data data data data RESULTE JBG No No No No Dec 04 D BY informa informa informa informa 2017 tion in tion in tion in tion in 6:05 PM source source source source data data data data SEND Y No No No No Dec 04 PHARM/I informa informa informa informa 2017 C tion in tion in tion in tion in 6:05 PM source source source source data data data data SEND TO Y No No No Dec 04 ER informa informa informa 7.1805. 2017 tion in tion in tion in [email or web address] 6:05 PM source source source PLETE data data data Bacteria identified in Blood by Culture Observa Value Referen Units Interpr Notes Date tion ce etation Range _CULTURE BLOOD_ STATUS PRELIMI No No No No Dec 04 NARY informa informa informa informa 2017 tion in tion in tion in tion in 6:05 PM source source source source data data data data RESULT NO No No No No Dec 04 GROWTH informa informa informa informa 2017 AT 1 tion in tion in tion in tion in 6:05 PM DAY source source source source data data data data RESULTE DB No No No No Dec 04 D BY informa informa informa informa 2017 tion in tion in tion in tion in 6:05 PM source source source source data data data data SEND Y No No No No Dec 04 PHARM/I informa informa informa informa 2017 C tion in tion in tion in tion in 6:05 PM source source source source data data data data SEND TO Y No No No Dec 04 ER informa informa informa 2017 tion in tion in tion in 6:05 PM source source source data data data STATUS FINAL No No No No Dec 04 informa informa informa informa 2017 tion in tion in tion in tion in 6:05 PM source source source source data data data data RESULT NO No No No No Dec 04 GROWTH informa informa informa informa 2017 5 DAYS tion in tion in tion in tion in 6:05 PM source source source source data data data data RESULTE JBG No No No No Dec 04 D BY informa informa informa informa 2017 tion in tion in tion in tion in 6:05 PM source source source source data data data data SEND Y No No No No Dec 04 PHARM/I informa informa informa informa 2017 C tion in tion in tion in tion in 6:05 PM source source source source data data data data SEND TO Y No No No Dec 04 ER informa informa informa 7.1805. 2017 tion in tion in tion in [email or web address] 6:05 PM source source source PLETE data data data US ROHAN DOP RT UNI Observa Value Referen Units Interpr Notes Date tion ce etation Range US ROHAN \.br\ No No No No Nov 29 DOP RT informa informa informa informa 2017 UNI tion in tion in tion in tion in 4:14 PM source source source source data data data data [facility] L\.br\ [address]br \ [place] [address]\. br\\.br \ ------- --NAME- ------- - NUMBER SEX AGE ADMIT DISC. XRAY# F/C TYPE\.b r\ JOSE DUNBAR [id number] F 31 [birth year] XFB E/R\.br \ DATE OF : [birth year] M/R# [id number] PH#: RM ERYYY\. br\ LOCATIO N: TRANSCR IBED: 7 18:21\. br\ US ROHAN DOP RT UNI [id number] COMPLET ED: 58411\. br\ {REASON FOR VASCULA R: R/O SEPTIC THROMBO PHLEBIT IS\.br\ \.br\ PHYSICI AN: ERMELINDA MAR\.br \\.br\\ .br\=== ======= ======= ======= ======= ======= ======= ======= ======= ======= ======= ======\ .br\ RADIOLO GY REPORT\ .br\=== ======= ======= ======= ======= ======= ======= ======= ======= ======= ======= ======\ .br\ORD ER DATE and TIME: 017 1614\.b r\\.br\ \.br\HI STORY: Pain/ed desiree of the right arm with history of abscess \.br\\. br\TECH NIQUE: Multipl didi marina scale and color Doppler sonogra phic images of the\.br \major veins of the right upper extremi ty extendi ng from the jugular through \.br\th e antecub ital fossa were obtaine d in evaluat ion of venous thrombo sis.\.b r\Addit ional limited imaging of the right upper extremi ty was perform ed in the\.br \region reporte d abscess .\.br\\ .br\COM PARISON :\.br\N one\.br \\.br\F INDINGS :\.br\\ .br\Vis ualized major veins of the right upper extremi ty are yefri sible and\.br \demons trate normal Doppler wavefor ms and color flow.\. br\\.br \Limite d imaging in the region of reporte d abscess in the proxima l right upper\. br\extr emity demonst rate heterog enous debris and edema/s ubcutan eous fluid without \.br\la rge drainab le collect ion.\.b r\\.br\ IMPRESS ION:\.b r\\.br\ Patent major veins of the the right upper extremi ty.\.br \\.br\L imited imaging in the region of reporte d abscess demonst rates heterog enous\. br\debr is and edema/s ubcutan eous fluid without large drainab le collect ion.\.b r\\.br\ COMMUNI CATION: \.br\Pe r this written report. \.br\\. br\\.br \Electr onicall y Signed By:\.br \AVERY RUTLEDGE MD,RADI OLOGIST \.br\Da te/Time : 7 18:21\. br\ Bacteria identified in Unspecified specimen by Aerobe culture Observa Value Referen Units Interpr Notes Date tion ce etation Range Collect RIGHT No No No Nov 25 ion ARM informa informa informa 2016 Site: ABSCES tion in tion in tion in 9:33 AM source source source data data data STATUS FINAL No No No No Nov 25 informa informa informa informa 2016 tion in tion in tion in tion in 9:33 AM source source source source data data data data RESULT: SCANT No No No No Nov 25 GROWTH informa informa informa informa 2016 COAG tion in tion in tion in tion in 9:33 AM NEGATIV source source source source E STAPH data data data data RESULTE MDA No No No No Nov 25 D BY informa informa informa informa 2017 tion in tion in tion in tion in 9:33 AM source source source source data data data data SEND Y No No No No Nov 25 PHARM/I informa informa informa informa 2017 C tion in tion in tion in tion in 9:33 AM source source source source data data data data SEND TO Y No No No Nov 25 ER informa informa informa 7.0934. 2017 tion in tion in tion in [email or web address] 9:33 AM source source source PLETE data data data Microscopic observation [Identifier] in Unspecified specimen by Gram stain Observa Value Referen Units Interpr Notes Date tion ce etation Range SOURCE: R ARM No No No Nov 23 ABSCESS informa informa informa 2017 tion in tion in tion in 6:42 PM source source source data data data GRAM 1+ WBCs No No No No Nov 23 STAIN: informa informa informa informa 2017 tion in tion in tion in tion in 6:42 PM source source source source data data data data RARE No No No No Nov 23 GRAM informa informa informa informa 2017 POSITIV tion in tion in tion in tion in 6:42 PM E COCCI source source source source data data data data RARE No No No No Nov 23 GRAM informa informa informa informa 2017 NEGATIV tion in tion in tion in tion in 6:42 PM E RODS, source source source source data data data data PRESUMP TIVE GRAM No No No No Nov 23 STAIN informa informa informa informa 2017 TO BE tion in tion in tion in tion in 6:42 PM REVIEWE source source source source D data data data data RESULTE CAM No No No No Nov 23 D BY informa informa informa informa 2017 tion in tion in tion in tion in 6:42 PM source source source source data data data data SEND Y No No No No Nov 23 PHARM/I informa informa informa informa 2017 C tion in tion in tion in tion in 6:42 PM source source source source data data data data SEND TO Y No No No Nov 23 ER informa informa informa 7.1842. 2017 tion in tion in tion in [email or web address] 6:42 PM source source source PLETE data data data
--- OUTSIDE RECORDS SUMMARY | 2017-08-28 03:27 | External Medical Summary Rpt ---
[...] PHARMAC data data data Y D via [facility]. 0836.MD KurtzCOMPL ETE Drug abuse CCC Observa [...] TIC USE ONLY TEST PERFORM ED BY: [facility] ory[facility] [place] [phone])[place] DICAL DIRECTO R: Frankie Fajardo MD Urinalysis [...] 2017 tion in tion in tion in [email or web address] 6:06 PM source source source PLETE data [...] 2017 tion in tion in tion in [employer] 6:05 PM source source source PLETE01 data [...] 2017 tion in tion in tion in [email or web address] 6:05 PM source source source PLETE data data data US ROHAN DOP RT UNI Observa Value Referen Units Interpr Notes Date tion ce etation Range US ROHAN \.br\ No No No No Nov 29 DOP RT informa informa informa informa 2017 UNI tion in tion in tion in tion in 4:14 PM source source source source data data data data [facility]\.br\ [address]\.br \ [place] [address]\. br\\.br \ ------- --NAME- ------- - NUMBER SEX AGE ADMIT DISC. XRAY# F/C TYPE\.b r\ JOSE DUNBAR [id number] F 31 [birth year] XFB E/R\.br \ DATE OF : [birth year] M/R# [id number] PH#: RM ERYYY\. br\ LOCATIO N: TRANSCR IBED: 7 18:21\. br\ US ROHAN DOP RT UNI [id number] COMPLET ED: [id number]\. br\ {REASON FOR VASCULA R: R/O SEPTIC [...]
== END 2017-08-21 10:51 | disposition home or self-care (01) ==
LOC: UTC 09:57
DX: K08.89 Other specified disorders of teeth and supporting structures (principal); F17.210 Nicotine dependence, cigarettes, uncomplicated; Z86.19 Personal history of other infectious and parasitic diseases; F41.9 Anxiety disorder, unspecified; Z79.899 Other long term (current) drug therapy